=== PATIENT | female | born 1985 ===

== ENCOUNTER 2018-01-04 22:21 | Inpatient (IN) | payer MEDICAID, SELFPAY ==
[2018-01-04 22:33] VITALS: BMI 33.9
[2018-01-04] MEDS ORDERED: Lactated Ringer's 1,000 ML IV ONE (23:41)
[2018-01-04] MEDS ORDERED: Lactated Ringer's 1,000 ML IV SCH (23:45)
[2018-01-05 00:40] LABS: BASO % 0.3 % (0.0-2.0); EOS % 0.5 % (0.0-4.0); HEMOGLOBIN 12.6 g/dL (12.0-16.0); LYMPH % 24.5 % (20.0-40.0); MEAN CELL VOLUME 85.6 fl (81.0-99.0); MEAN CORPUSCULAR HEMOGLOBIN 28.4 pg (27.0-31.0); MEAN CORPUSCULAR HGB CONC 33.2 g/dL (33.0-37.0); MONO # 0.6 K/uL (0.0-0.8); NEUT # 5.6 K/uL (1.8-7.0); NEUT % 67.7 % (50.0-75.0); RBC 4.43 Mil/uL (3.80-5.20); RED CELL DISTRIBUTION WIDTH 16.1 % (11.5-14.5); WHITE BLOOD COUNT 8.3 K/uL (4.8-10.8)
[2018-01-05] MEDS ORDERED: Oxytocin 30 UNIT 30 UNITS/500 ML BAG IV ONE (08:03)
--- NOTE | 2018-01-05 08:08 | OBADHP ---
Datetime: 01/05/2018 00:06 Admit Comment, IP Provider: 32 year old at 38.3 (confirmed by U/S @ 11 weeks) presents for i nduction of labor due to oligohydramnios noted on her U/S today by Dr. Torres (MODESTO 4.2). Denies vag inal bleeding, loss of fluid and decrease in movement. OB hx: 2 - @ 36 wks and 31 wks - no further complcations PMHx: Herpes, GDM diet controlled Family history: denies Social history: denies smoking, drinking alcohol or illicit drug use. Surgical history: Denies Allergies: N.K.D.A Medications: Acyclovir x 2 weeks - last dosage this morning, pnv Labs: HIV: Negative HbsAg: negative GBS: negative Rubella: immune GC/ CL: negative RPR: negative HSV II IGG: positive Antibody: negative Quantiferon: negative Tdap: 10/26/17 ABO: unknown - type and screen pending Physical exam: in no acute distress Heart: S1 and S2. No murmurs, gallops or rubs. Lungs: Clear air entry bilaterally Abdomen: Soft, nontender; gravid Vaginal exam: Cervical exam : 1 cm/ 0 / -3 heart monitor: Baseline HR: 150 ; Moderate variability; Accelerations present; No decelerati ons; Minimal contractions every 15-20 minutes; Category 1 tracing. Assessment: Plan: - Admit to L and D for induction of labor protocol - Cervadil 10mg - IVF - Labs - Continuous heart rate monitoring Case discussed with Dr. Cates ---Nan May, PGY 1 Family Medicine Pelvic Type - PN: Not Done Extremities - PN: Normal Breast - PN: Not Done Lungs - PN: Normal Heart - PN: Normal Thyroid - PN: Not Done Neurologic - PN: Not Done HEENT - PN: Normal General - PN: Normal FHR - Baseline A Provider: 150 Vital Signs Provider: Reviewed; Within Normal Limits IP Chief Complaint: Scheduled induction of labor NICHD Variability Prov Fetus A: Moderate 6-25bpm NICHD Accel Fetus A IP Provider: [id number] FHR Category Provider Fetus A: Category I NICHD Decel Fetus A IP Provider: None Genitourinary Exam: Normal DTRs - PN: Not Done EGA AdmitDate IP: 38.3 IP Adm Impression: Term, intrauterine IP Admit Plan: Initiate labor induction protocol
[2018-01-05] MEDS ORDERED: OXYTOCIN/0.9 % NS 20 UNIT/1,000 ML BAG IV SCH (08:15)
[2018-01-06] MEDS ORDERED: Oxytocin 30 UNIT 30 UNITS/500 ML BAG IV ONE (09:48)
[2018-01-06] MEDS ORDERED: Lidocaine 2% MPF (5 ml) Inj ONE (11:39)
[2018-01-06] MEDS ORDERED: Benzocaine/Menthol SPRAY TOP PRN ×2 (15:07→15:09)
[2018-01-06] MEDS: OXYTOCIN/0.9 % NS 20 UNIT/1,000 ML BAG IV SCH (15:24)
[2018-01-07] MEDS: OXYTOCIN/0.9 % NS 20 UNIT/1,000 ML BAG IV SCH (07:15)
[2018-01-07 07:22] LABS: BASO % 0.5 % (0.0-2.0); EOS # 0.1 K/uL (0.0-0.7); EOS % 0.7 % (0.0-4.0); HEMOGLOBIN 11.6 g/dL (12.0-16.0); LYMPH % 31.3 % (20.0-40.0); MEAN CELL VOLUME 87.6 fl (81.0-99.0); MEAN CORPUSCULAR HEMOGLOBIN 28.4 pg (27.0-31.0); MEAN CORPUSCULAR HGB CONC 32.5 g/dL (33.0-37.0); MEAN PLATELET VOLUME 9.1 fl (7.2-11.7); MONO # 0.8 K/uL (0.0-0.8); MONO % 8.5 % (0.0-10.0); NEUT # 5.6 K/uL (1.8-7.0); RBC 4.09 Mil/uL (3.80-5.20); RED CELL DISTRIBUTION WIDTH 16.6 % (11.5-14.5); WHITE BLOOD COUNT 9.5 K/uL (4.8-10.8)
--- NOTE | 2018-01-07 08:04 | OBDS ---
DELIVERY PERSONNEL Delivery Doctor: Tanner Cates MD Master [place]: Thais Gardner RN Resident: Dr Perez MATERNAL INFORMATION Delivery Anesthesia: Local Medications in Delivery: pitocin Estimated Blood Loss (ml): 200 Placenta Cultured: No Maternal Complications: None Provider Comments: Normal spontaneous vaginal delivery. Patient delivered viable female with Apgars of 9 and 9 at one and 5 minutes respectively. P lacenta delivered spontaneously. Laceration repaired, as above. Uterus firm and appropriately hemosta tic following delivery. No complications. Tolerating delivery and repair well. Estimated blood loss 2 00 mL LABOR SUMMARY EDC: 01/16/2018 00:00 No. Babies in Womb: 1 Attempted: No Labor Anesthesia: None LABOR INFORMATION Reason for Induction: Oligohydramnios Onset of Labor: 01/06/2018 14:38 Complete Dilatation: 01/06/2018 14:47 Cervical Ripening Agents: Cervidil Oxytocin: N/A Group B Beta Strep: Negative Steroids Given: None Reason Steroids Not Administered: Not Applicable MEMBRANES Membranes Rupture Method: Artificial Rupture of Membranes: 01/06/2018 14:49 Length of Rupture (hrs): 0.03 Amniotic Fluid Color: Clear Amniotic Fluid Amount: Moderate Amniotic Fluid Odor: None STAGES OF LABOR Stage 1 hrs: 0 Stage 1 min: 9 Stage 2 hrs: 0 Stage 2 min: 4 Stage 3 hrs: 0 Stage 3 min: 5 Total Time in Labor hrs: 0 Total Time in Labor min: 18 VAGINAL DELIVERY Episiotomy: Median Laceration Extension: Second Degree Laceration Type: Perineal Laceration Repair: Yes Laceration Repair Note: Second-degree midline peroneal laceration. Area infiltrated with 1% lidocain e. Laceration repaired with 2. 0 repeat without complication. Patient tolerated repair well. Initial Vag Sponge Count: 5 Final Vag Sponge Count: 5 Initial Vag Sharps Count: 3 Final Vag Sharps Count: 3 Sponge Count Correct: Yes Sharps Count Correct: Yes BABY A INFORMATION Delivery Date/Time: 01/06/2018 14:51 Method of Delivery: Vaginal Born in Route : No : N/A Forceps: N/A Vacuum Extraction: N/A Shoulder Dystocia : No SHOULDER DYSTOCIA BABY A Infant Delivery Date/Time: 01/06/2018 14:51 PRESENTATION/POSITION BABY A Presentation: Cephalic Cephalic Presentation: Vertex Vertex Position: Left Occipital Anterior Breech Presentation: N/A PLACENTA INFORMATION BABY A Placenta Delivery Time : 01/06/2018 14:56 Placenta Method of Delivery: Spontaneous Placenta Status: Delivered SCORES BABY A Heart Rate 1 min: >100 bpm Resp Effort 1 min: Good Cry Reflex Irritability 1 min: Cough or Sneeze or Pulls Away Muscle Tone 1 min: Active Motion Color 1 min: Body [place], Extremities Blue Resuscitation Effort 1 min: N/A SCORE 1 MIN: 9 Heart Rate 5 min: >100 bpm Resp Effort 5 min: Good Cry Reflex Irritability 5 min: Cough or Sneeze or Pulls Away Muscle Tone 5 min: Active Motion Color 5 min: Body [place], Extremities Blue Resuscitation Effort 5 min: N/A SCORE 5 MIN: 9 INFORMATION BABY A Gestational Age at Delivery: 38.4 Gestational Status: Term Outcome : Liveborn Infant Condition : Stable Infant Sex: Female IDENTIFICATION/MEDS BABY A ID Band Number: [id number] ID Band Location: Left Leg; Left Arm WEIGHT/LENGTH BABY A Infant Birthweight (gms): 2865 Infant Weight (lb): 6 Infant Weight (oz): 5 CORD INFORMATION BABY A No. Cord Vessels: 3 Nuchal Cord : N/A Cord Blood Taken: Yes Infant Suction: None ASSESSMENT BABY A Complications: Oligohydramnios Physical Findings at Delivery: Within Normal Limits Hematology Supervisor/ALS Called : No Infant Care By: DR Arenas Transferred To: Remains with Mother
--- NOTE | 2018-01-07 08:16 | OBDS ---
DELIVERY PERSONNEL Delivery Doctor: Tanner Cates MD Systems Integrator: Thais Gardner RN Resident: Dr Perez MATERNAL INFORMATION Delivery Anesthesia: Local Medications in Delivery: pitocin Estimated Blood Loss (ml): 200 Placenta Cultured: No Maternal Complications: None Provider Comments: Normal spontaneous vaginal delivery. Patient delivered viable female with Apgars of 9 and 9 at one and 5 minutes respectively. P lacenta delivered spontaneously. Laceration repaired, as above. Uterus firm and appropriately hemosta tic following delivery. No complications. Tolerating delivery and repair well. Estimated blood loss 2 00 mL LABOR SUMMARY EDC: 01/16/2018 00:00 No. Babies in Womb: 1 Attempted: No Labor Anesthesia: None LABOR INFORMATION Reason for Induction: Oligohydramnios Onset of Labor: 01/06/2018 14:38 Complete Dilatation: 01/06/2018 14:47 Cervical Ripening Agents: Cervidil Cervical Ripening Agents: Cervidil Cervical Ripening Agents: Cytotec @ (Annotations: 50mcg given by CLAUDY Sin as ordered ) Cervical Ripening Agents: Cervidil Cervical Ripening Agents: Cervidil (Annotations: Inserted by Dr. May) Oxytocin: N/A Group B Beta Strep: Negative Steroids Given: None Reason Steroids Not Administered: Not Applicable MEMBRANES Membranes Rupture Method: Artificial Membranes Rupture Method: Artificial Rupture of Membranes: 01/06/2018 14:49 Rupture of Membranes: 01/06/2018 14:49 Length of Rupture (hrs): 0.03 Length of Rupture (hrs): 0.03 Amniotic Fluid Color: Clear Amniotic Fluid Color: Clear Amniotic Fluid Amount: Moderate Amniotic Fluid Amount: Moderate Amniotic Fluid Odor: None Amniotic Fluid Odor: None STAGES OF LABOR Stage 1 hrs: 0 Stage 1 min: 9 Stage 2 hrs: 0 Stage 2 min: 4 Stage 3 hrs: 0 Stage 3 min: 5 Total Time in Labor hrs: 0 Total Time in Labor min: 18 VAGINAL DELIVERY Episiotomy: Median Laceration Extension: Second Degree Laceration Type: Perineal Laceration Repair: Yes Laceration Repair Note: Second-degree midline peroneal laceration. Area infiltrated with 1% lidocain e. Laceration repaired with 2. 0 repeat without complication. Patient tolerated repair well. Initial Vag Sponge Count: 5 Final Vag Sponge Count: 5 Initial Vag Sharps Count: 3 Final Vag Sharps Count: 3 Sponge Count Correct: Yes Sharps Count Correct: Yes BABY A INFORMATION Infant Delivery Date/Time: 01/06/2018 14:51 Method of Delivery: Vaginal Born in Route : No : N/A Forceps: N/A Vacuum Extraction: N/A Shoulder Dystocia : No SHOULDER DYSTOCIA BABY A Delivery Date/Time: 01/06/2018 14:51 PRESENTATION/POSITION BABY A Presentation: Cephalic Cephalic Presentation: Vertex Vertex Position: Left Occipital Anterior Breech Presentation: N/A PLACENTA INFORMATION BABY A Placenta Delivery Time : 01/06/2018 14:56 Placenta Method of Delivery: Spontaneous Placenta Status: Delivered SCORES BABY A Heart Rate 1 min: >100 bpm Resp Effort 1 min: Good Cry Reflex Irritability 1 min: Cough or Sneeze or Pulls Away Muscle Tone 1 min: Active Motion Color 1 min: Body [place], Extremities Blue Resuscitation Effort 1 min: N/A SCORE 1 MIN: 9 Heart Rate 5 min: >100 bpm Resp Effort 5 min: Good Cry Reflex Irritability 5 min: Cough or Sneeze or Pulls Away Muscle Tone 5 min: Active Motion Color 5 min: Body [place], Extremities Blue Resuscitation Effort 5 min: N/A SCORE 5 MIN: 9 INFORMATION BABY A Gestational Age at Delivery: 38.4 Gestational Status: Term Outcome : Liveborn Infant Condition : Stable Sex: Female IDENTIFICATION/MEDS BABY A ID Band Number: [id number] ID Band Location: Left Leg; Left Arm WEIGHT/LENGTH BABY A Birthweight (gms): 2865 Infant Weight (lb): 6 Infant Weight (oz): 5 CORD INFORMATION BABY A No. Cord Vessels: 3 Nuchal Cord : N/A Cord Blood Taken: Yes Infant Suction: None ASSESSMENT BABY A Complications: Oligohydramnios Physical Findings at Delivery: Within Normal Limits Vegetable Canner/ALS Called : No Care By: DR Arenas Transferred To: Remains with Mother
[2018-01-07] MEDS ORDERED: Influenza Vaccine (5 YR UP)/PF 60 MCG/0.5 ML SYR IM ONE (10:00)
--- NOTE | 2018-01-07 18:18 | OBPPN ---
Datetime: 01/07/2018 07:55 PP Pain Prov: Within normal limits PP Nausea Prov: Denies PP Flatus Prov: No PP BM Prov: No PP Breasts Prov: Not Done PP Heart Prov: Normal PP Lungs Prov: Normal PP Abdomen/Uterus Prov: Normal PP Lochia Prov: Normal PP Vulva/Perineum Prov: Not Done PP CVA Tenderness Prov: Not Done PP Extremities Prov: Normal PP C/S Incision Prov: Not Applicable PP Progress Prov: Normal PP Impression Prov: Normal progression PP Plan Prov: Continue present management PP Progress Note Prov: S: 32 YO , PPD1 s/p NVD. Patient is doing well this AM, family and baby p resent by bedside. Ambulating to the bathroom without difficulties. Mild abdominal pain but well cont rolled with PO pain meds. Vaginal bleeding is minimal. -flatus/-BM. Good PO intake. ROS: Denies chest pain, dyspnea, n/v/d/c, fever, chills, vomiting. O: VS: Vitals reviewed, afebrile GEN: looks comfortable, laying down in bed HEENT: EMOI, no pallor H: S1S2, systolic murmur noted, no additional heart sounds L: Clear breath sounds b/l A: soft, fundus below umbilicus-firm, BS+ N: Awake and alert, preserved mood and effect. E: no edema noted, neg calf tenderness A/P: 32 YO @38.3wks IUP, s/p NVD. Gave to a baby girl on 01/06/18. Doing well PPD1. -c/w diet as tolerated -SCDs for DVT prophylaxis -cont pain management as needed -encouraged to ambulate as tolerated and continue Juanita Mercedes, PGY II OB Hospitalist on-call. With PGY2, I saw patient. Agree wih note... MAHNDO Vital Signs Provider PP: Reviewed; Within Normal Limits
[2018-01-08] MEDS ORDERED: Pneumococcal 23-Valent Vaccine IM ONE (10:00)
--- NOTE | 2018-01-08 11:25 | OBPPN ---
Datetime: 01/08/2018 06:35 PP Pain Prov: Within normal limits PP Nausea Prov: Denies PP Flatus Prov: Yes PP BM Prov: No PP Breasts Prov: Not Done PP Heart Prov: Normal PP Lungs Prov: Normal PP Abdomen/Uterus Prov: Normal PP Lochia Prov: Normal PP Vulva/Perineum Prov: Not Done PP CVA Tenderness Prov: Not Done PP Extremities Prov: Not Done PP C/S Incision Prov: Not Applicable PP Progress Prov: Normal PP Impression Prov: Normal progression PP Plan Prov: Continue present management; Discharge PP Progress Note Prov: S: 32 yo G 6 P1232 s/p NVD on 01/06/2018 at 14:51. Pt. is seen and examined a t bedside this AM and is in no acute distress. No significant overnight events. Pt reports occasional abdominal pain, but well controlled with pain meds. Pt is ambulating without any difficulties. Breas t feeding baby. Tolerating PO diet. Lochia is similar to light menses in volume. Voiding freely, no b owel movement, but passing gas per rectum. Denies fever, chills, diarrhea, nausea, vomiting, chest pain, dyspnea, and dizziness. O: VS: stable GEN: NAD Cardio: S1S2, no M/G/R Resp: clear air entry bilaterally Abdomen: BS+, NT, Uterus is firm and at the level of the umbilicus. EXT: No edema, calves nontender NEURO/PSYCHI: AAOx3, no grossly focal deficit, preserved affect and mood. Assessment/Plan: 32 yo G6 P 1232 s/p NVD on 01/06/2018 at 14:51. Pt remains afebrile, tolerating p ain with medication, tolerating PO intake, doing well on PPD_. OOB with caution SCDs for DVT prophylaxis, pt ambulating Ibuprofen 600mg for pain. Colace 100mg PO BID for constipation Encourage and ambulating CBC: 11.6/35.8 Anticipated d/c to home, 01/08/2018. --- Ana Castellano MD PGY-1 Patient seen and examined by me this am. Agree with above note. Patient for discharge home today. encouraged. Patient for follow up for care in 6 weeks. Continue pelvic rest. Baby to follow up in 1 week. --Dr. Multani IP PP Procedures: None
[2018-01-08 18:13] VITALS: BP 94/67; PULSE 62; RESP 20; TEMP 98.1; O2SAT 98
== END 2018-01-08 13:20 | disposition home or self-care (01) | DRG 372 ==
LOC: H.EROB2 22:21 → H.L&D 23:36 → H.OB/GYN 01-06 17:30
PROVIDERS: ADMIT Obstetrics & Gynecology; ATTEND Obstetrics & Gynecology
PROC: 4A1HXCZ Monitoring of Products of Conception, Cardiac Rate, External Approach (ICD-10-PCS; 2018-01-04)
PROC: 10E0XZZ Delivery of Products of Conception, External Approach (ICD-10-PCS; principal; 2018-01-06)
PROC: 0KQM0ZZ Repair Perineum Muscle, Open Approach (ICD-10-PCS; 2018-01-06)
DX: O41.03X0 Oligohydramnios, third trimester, not applicable or unspecified (principal); O24.92 Unspecified diabetes mellitus in childbirth; Z3A.38 38 weeks gestation of pregnancy; Z37.0 Single live birth; O70.1 Second degree perineal laceration during delivery